=== PATIENT | female | born 1975 | race American Indian/Alaskan Native ===

== ENCOUNTER 2016-07-05 11:09 | Emergency (ER) | payer OTHER ==
[2016-07-05 11:21] VITALS: BP 124/85
--- NOTE | 2016-07-05 11:24 | EDM.PDOC ---
ED HPI LOWER BACK PAIN/INJURY - General Chief Complaint: Back Pain or Injury Stated Complaint: LOWER BACK PAIN [phone] Time Seen by Provider: 07/05/16 11:24 Source of Information: Reports: Patient, RN, RN notes reviewed History Limitations: Reports: No limitations - History of Present Illness INITIAL COMMENTS - FREE TEXT/NARRATIVE: C/O flare up of chronic low back pain x2 weeks without new injury. For the last 5 days the pain has been worse, and is radiating down through the Rt buttock, back of the Rt thigh, then goes around to lateral Rt lower leg, out into the Rt foot to the toes. Pt denies any motor weakness, saddle numbness, or loss of bowel or bladder control. She has an appointment in clinic next week, but cannot get in any sooner. She also ran out of her gabapentin 3 days early. 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 treatments, Other medication(s) - Related Data Allergies/ADRs: Allergies Allergy/AdvReac Type Severity Reaction Status Date / Time No Known Allergies Allergy Verified 07/05/16 11:14 Home Meds: Home Meds Naproxen [Naprosyn] 500 mg PO ASDIRECTED PRN 10/24/14 [History] traZODone HCl [Trazodone HCl] 100 mg PO BEDTIME 10/24/14 [History] Baclofen [Baclofen] 10 mg PO BID 03/25/16 [History] sulfaSALAzine [sulfaSALAzine DR] 1,500 mg PO BID 03/25/16 [History] DULoxetine [Cymbalta] 60 mg PO BID 07/05/16 [History] Past Medical History Other OB/BYN History: LEEP procedure Musculoskeletal History: Reports: Back pain, chronic, RA Other Musculoskeletal History: knee pain Neurological History: Reports: Other (see below) Other Neuro History: fibromyalgia Endocrine/Metabolic History: Reports: Obesity/BMI 30+ Immunologic History: Reports: Other (see below) Other Immunologic History: RA and Fibromyalgia - Infectious Disease History Infectious Disease History: Reports: Chicken pox Social & Family History - Family History Family Medical History: Noncontributory - Tobacco Use Smoking Status *Q: Current Every Day Smoker Years of Tobacco use: 20 Packs/Tins Daily: 0.5 Used Tobacco, but Quit: No Second Hand Smoke Exposure: Yes - Caffeine Use Caffeine Use: Reports: Coffee, Soda - Recreational Drug Use Recreational Drug Use: No - Living Situation & Occupation Living situation: Reports: with family ED ROS GENERAL - Review of Systems Review Of Systems: ROS reveals no pertinent complaints other than HPI. ED EXAM,LOWER BACK PAIN/INJURY - Physical Exam Exam: See Below Exam Limited By: No limitations General Appearance: alert, WD/WN, no apparent distress Head: atraumatic, normocephalic Neck: normal inspection Respiratory/Chest: no respiratory distress Cardiovascular: normal peripheral pulses GI/Abdominal: normal bowel sounds, soft, non tender, no distention, other ( benign morbidly obese abdomen) (Female) Exam: Deferred Rectal (Female) Exam: Deferred Back Exam: decreased range of motion (L-spine), muscle spasm, paraspinal tenderness (lumbar). No: CVA tenderness (L), CVA tenderness (R), vertebral tenderness Extremities: normal inspection, normal range of motion, non-tender, no pedal edema, normal capillary refill Neurological: alert, normal mood/affect, normal dorsiflexion, CN II-XII intact, normal plantar flexion, no motor/sensory deficits. No: normal gait (antalgic gait favoring right lower ext.) Psychiatric: normal affect, normal mood Skin Exam: Warm, Dry, Intact, Normal color, No rash Course - Vital Signs Last Recorded V/S: Last Vital Signs Temp 36.6 C 07/05/16 11:17 Pulse 96 07/05/16 11:17 Resp 20 07/05/16 11:17 BP 124/85 07/05/16 11:17 Pulse Ox 99 07/05/16 11:17 - Orders/Labs/Meds Orders: Active Orders 24 hr Category Date Time Status Lumbar Spine 2 or 3V [CR] Urgent Exams 07/05/16 11:40 Taken Meds: Medications Discontinued Medications Generic Name Dose Route Start Last Admin Trade Name Freq PRN Reason Stop Dose Admin Dexamethasone 12 mg 07/05/16 11:40 07/05/16 11:54 Dexamethasone IM 07/05/16 11:41 12 mg ONETIME ONE Administration Gabapentin 800 mg 07/05/16 11:40 07/05/16 11:54 Neurontin PO 07/05/16 11:41 800 mg ONETIME ONE Administration - Radiology Interpretation Free Text/Narrative:: XRay L-spine: chronic appearing degen. changes of L-spine with L5-S1 DDD; see Rad. report. Departure - Departure Time of Disposition: 12:13 Disposition: Home, Self-Care 01 Condition: fair Clinical Impression: Lumbar radiculopathy, acute, Degenerative disc disease, lumbar Instructions: Chronic Back Pain Forms: ED Department Discharge Additional Instructions: Rx: Medrol Dose-Mohsen Rx: Gabapentin 400mg Rx: [place] 5mg/325mg Follow up in clinic for recheck, and discuss need for a lumbar MRI with your doctor. - My Orders Last 24 Hours: My Active Orders 07/05/16 11:40 Lumbar Spine 2 or 3V [CR] Urgent - Assessment/Plan Last 24 Hours: My Active Orders 07/05/16 11:40 Lumbar Spine 2 or 3V [CR] Urgent
[2016-07-05] MEDS ORDERED: Gabapentin 400 MG Cap PO ONE (11:40)
[2016-07-05] MEDS ORDERED: Dexamethasone 4 MG/ML SDV IM ONE (11:40)
--- NOTE | 2016-07-05 12:30 | CR ---
Clinical history: 41-year-old female low back pain that "radiation" right leg and foot. No known tra mathew. Interpretation: AP lateral lumbar sacral spine films confirm transitional (lumbarized) S1 vertebra a nd signs of chronic lower lumbar L5-S1 disc disease i.e. interspace narrowing with endplate sclerosi s. Reactive sclerosis posterior articulating facets, L5 and S1 levels. No sign of pathologic skeletal lesion, compression fracture, spondylolisthesis or proximal intervert ebral disc space narrowing. Symmetric spacing normal-appearing SI joints. CONCLUSION: Lower lumbar disc disease (suggest MRI be considered as the next best, least invasive, d iagnostic modality).
== END 2016-07-05 12:46 | disposition home or self-care (01) ==
LOC: DL.ED 11:09
DX: M54.16 Radiculopathy, lumbar region (principal); M51.36 Other intervertebral disc degeneration, lumbar region; M06.9 Rheumatoid arthritis, unspecified; E66.9 Obesity, unspecified; F17.210 Nicotine dependence, cigarettes, uncomplicated; Z79.899 Other long term (current) drug therapy
CPT/HCPCS: 72100; 96372; 99283; A9270; J1100

== ENCOUNTER 2016-08-09 13:52 | Emergency (ER) | payer OTHER ==
[2016-08-09 14:06] VITALS: BP 127/79
--- NOTE | 2016-08-09 14:27 | EDM.PDOC ---
[id number]: EXT L BACK PAIN, [id number] Time Seen by Provider: 08/09/16 14:27 Source of Information: Reports: Patient, Old records, RN, RN notes reviewed History Limitations: Reports: No limitations - History of Present Illness INITIAL COMMENTS - FREE TEXT/NARRATIVE: Hx of RA and chronic low back pain, not opiate dependent with c/o acute flare up of LBP radiating to B/L lower extremities. Denies recent injury. Denies loss of bowel or bladder control. Denies saddle numbness, extremity tingling, or weakness. Admits to a "partial" numbness to B/L lower extremities. Has lumbar MRI order pending insurance approval. Timing/Duration: Reports: Constant, Getting worse Location: Reports: radiating pain, generalized Quality: Reports: Same as previous episode, Sharp Severity: severe Improves with: Reports: None Worsens with: Reports: Movement Context: Reports: chronic pain/injury Associated Symptoms: Reports: Difficulty walking (due to back pain) Treatments IRONER SOCK: Reports: Other medication(s) - Related Data Allergies/ADRs: Allergies Allergy/AdvReac Type Severity Reaction Status Date / Time No Known Allergies Allergy Verified 08/09/16 14:06 Home Meds: Home Meds Naproxen [Naprosyn] 500 mg PO ASDIRECTED PRN 10/24/14 [History] traZODone HCl [Trazodone HCl] 100 mg PO BEDTIME 10/24/14 [History] sulfaSALAzine [sulfaSALAzine DR] 1,500 mg PO BID 03/25/16 [History] DULoxetine [Cymbalta] 60 mg PO BID 07/05/16 [History] Gabapentin [Neurontin] 600 mg PO QID 08/09/16 [History] Past Medical History HEENT History: Reports: Impaired vision Other OB/BYN History: LEEP procedure Musculoskeletal History: Reports: Back pain, chronic, RA Other Musculoskeletal History: knee pain Neurological History: Reports: Other (see below) Other Neuro History: fibromyalgia Endocrine/Metabolic History: Reports: Obesity/BMI 30+ Immunologic History: Reports: Other (see below) Other Immunologic History: RA and Fibromyalgia - Infectious Disease History Infectious Disease History: Reports: Chicken pox - Past Surgical History GI Surgical History: Reports: Appendectomy, Bariatric procedure Social & Family History - Family History Family Medical History: Noncontributory - Tobacco Use Smoking Status *Q: Current Every Day Smoker Years of Tobacco use: 20 Packs/Tins Daily: 0.6 Used Tobacco, but Quit: No Second Hand Smoke Exposure: Yes - Caffeine Use Caffeine Use: Reports: Coffee - Recreational Drug Use Recreational Drug Use: No - Living Situation & Occupation Living situation: Reports: with family ED ROS GENERAL - Review of Systems Review Of Systems: ROS reveals no pertinent complaints other than HPI. ED EXAM,LOWER BACK PAIN/INJURY - Physical Exam Exam: See Below Exam Limited By: No limitations General Appearance: alert, WD/WN, no apparent distress Eye Exam: bilateral eye: normal inspection Nose: normal inspection Throat/Mouth: Normal inspection Head: atraumatic, normocephalic Neck: normal inspection, supple, non-tender, full range of motion Respiratory/Chest: no respiratory distress, lungs clear, normal breath sounds, no accessory muscle use, chest non-tender Cardiovascular: normal peripheral pulses, regular rate, rhythm GI/Abdominal: normal bowel sounds, soft, no distention, other (benign obese abdomen) (Female) Exam: Deferred Rectal (Female) Exam: Deferred Back Exam: decreased range of motion (lumbosacral), muscle spasm (lumbar), paraspinal tenderness (lumbar). No: CVA tenderness (L), CVA tenderness (R), vertebral tenderness Extremities: normal inspection, normal range of motion, non-tender, no pedal edema, normal capillary refill Neurological: alert, normal mood/affect, normal dorsiflexion, CN II-XII intact, normal plantar flexion, normal reflexes, no motor/sensory deficits, oriented x 3 , abnormal gait (antalgic gait) Psychiatric: normal affect, normal mood Skin Exam: Warm, Dry, Intact, Normal color, No rash Course - Vital Signs Last Recorded V/S: Last Vital Signs Temp 35.9 C 08/09/16 14:03 Pulse 90 08/09/16 14:03 Resp 16 08/09/16 14:03 BP 127/79 08/09/16 14:03 Pulse Ox 97 08/09/16 14:03 - Orders/Labs/Meds Meds: Medications Discontinued Medications Generic Name Dose Route Start Last Admin Trade Name Freq PRN Reason Stop Dose Admin Dexamethasone 12 mg 08/09/16 14:42 08/09/16 14:50 Dexamethasone IM 04/12/17 14:43 12 mg ONETIME ONE Administration Gabapentin 300 mg 08/09/16 14:43 08/09/16 14:56 Neurontin PO 08/09/16 14:44 300 mg ONETIME ONE Administration Hydromorphone HCl 1 mg 08/09/16 14:43 08/09/16 14:49 Dilaudid IM 08/09/16 14:44 1 mg ONETIME ONE Administration Departure - Departure Time of Disposition: 14:58 Disposition: Home, Self-Care 01 Condition: fair Clinical Impression: Lumbar radiculopathy, acute Instructions: Pain Medicine Instructions, [id number], Lumbosacral Radiculopathy Forms: ED Department Discharge Additional Instructions: Light activity as tolerated. Avoid stay in any position for prolonged periods of time. Rx: Percocet 10mg/325mg *Do not drive or work while under the influence of this medication. Rx: Decadron 4mg Follow up in clinic as planned. Return to ER if worse at any time.
[2016-08-09] MEDS ORDERED: Dexamethasone 4 MG/ML SDV IM ONE (14:42)
[2016-08-09] MEDS ORDERED: HYDROmorphone 1 MG/ML Syringe IM ONE (14:43)
[2016-08-09] MEDS ORDERED: Gabapentin 300 MG Cap PO ONE (14:43)
== END 2016-08-09 15:03 | disposition home or self-care (01) ==
LOC: DL.ED 13:52
DX: M54.16 Radiculopathy, lumbar region (principal); E66.9 Obesity, unspecified; M06.9 Rheumatoid arthritis, unspecified; F17.210 Nicotine dependence, cigarettes, uncomplicated; Z68.42 Body mass index [BMI] 45.0-49.9, adult; Z90.49 Acquired absence of other specified parts of digestive tract; Z98.84 Bariatric surgery status; Z79.899 Other long term (current) drug therapy
CPT/HCPCS: 96372; 99283; A9270; J1100; J1170

== ENCOUNTER 2016-08-23 23:56 | Emergency (ER) | payer OTHER ==
[2016-08-24 00:23] VITALS: BP 127/78
--- NOTE | 2016-08-24 01:07 | EDM.PDOC ---
[id number]: BACK PAIN Time Seen by Provider: 08/24/16 00:15 Source of Information: Reports: Patient History Limitations: Reports: No limitations - History of Present Illness INITIAL COMMENTS - FREE TEXT/NARRATIVE: c/o low back pain with radiation to right lower leg. Onset sudden 2 months ago. Right leg pain worse tonight. Has appointment for MRI and with [facility] this week. Location: Reports: lower, paraspinal, radiating pain (right outer thigh) Quality: Reports: Sharp Severity: moderate Worsens with: Reports: Movement Context: Reports: chronic pain/injury Associated Symptoms: Denies: Nausea/vomiting, Paresthesias, Problems urinating - Related Data Allergies/ADRs: Allergies Allergy/AdvReac Type Severity Reaction Status Date / Time No Known Allergies Allergy Verified 08/24/16 00:23 Home Meds: Home Meds Naproxen [Naprosyn] 500 mg PO ASDIRECTED PRN 10/24/14 [History] traZODone HCl [Trazodone HCl] 100 mg PO BEDTIME 10/24/14 [History] sulfaSALAzine [sulfaSALAzine DR] 1,500 mg PO BID 03/25/16 [History] DULoxetine [Cymbalta] 60 mg PO BID 07/05/16 [History] Gabapentin [Neurontin] 600 mg PO QID 08/09/16 [History] Baclofen 10 mg PO BID 08/24/16 [History] Past Medical History HEENT History: Reports: Impaired vision Other OB/BYN History: LEEP procedure Musculoskeletal History: Reports: Back pain, chronic, RA Other Musculoskeletal History: knee pain Neurological History: Reports: Other (see below) Other Neuro History: fibromyalgia Endocrine/Metabolic History: Reports: Obesity/BMI 30+ Immunologic History: Reports: Other (see below) Other Immunologic History: RA and Fibromyalgia - Infectious Disease History Infectious Disease History: Reports: Chicken pox - Past Surgical History GI Surgical History: Reports: Appendectomy, Bariatric procedure Social & Family History - Family History Family Medical History: Noncontributory - Tobacco Use Smoking Status *Q: Current Every Day Smoker Years of Tobacco use: 20 Packs/Tins Daily: 6 Used Tobacco, but Quit: No Second Hand Smoke Exposure: Yes - Caffeine Use Caffeine Use: Reports: Coffee, Soda - Recreational Drug Use Recreational Drug Use: No - Living Situation & Occupation Living situation: Reports: with family ED ROS GENERAL - Review of Systems Review Of Systems: See Below Constitutional: Reports: no symptoms HEENT: Reports: No symptoms Respiratory: Reports: No Symptoms Cardiovascular: Reports: No symptoms GI/Abdominal: Reports: No symptoms : Reports: no symptoms Musculoskeletal: Reports: back pain, leg pain (right) Skin: Reports: no symptoms Neurological: Denies: Weakness ED EXAM,LOWER BACK PAIN/INJURY - Physical Exam Exam: See Below Exam Limited By: No limitations General Appearance: alert, moderate distress Ears: normal external exam Nose: normal inspection Throat/Mouth: Normal inspection Head: atraumatic, normocephalic Neck: normal inspection Cardiovascular: normal peripheral pulses, regular rate, rhythm GI/Abdominal: normal bowel sounds, soft. No: distended Back Exam: paraspinal tenderness (right lumbar). No: vertebral tenderness Extremities: normal range of motion Neurological: alert, normal dorsiflexion, oriented x 3, abnormal gait (antalgic) , straight leg raise (R) (increased pain), other (equal strength bilateral). No : abnormal sensation Psychiatric: normal affect Skin Exam: Warm, Dry, Intact, Normal color Course - Vital Signs Last Recorded V/S: Last Vital Signs Temp 96.8 F 08/24/16 00:13 Pulse 99 08/24/16 00:13 Resp 18 08/24/16 00:13 BP 127/78 08/24/16 00:13 Pulse Ox 98 08/24/16 00:13 - Orders/Labs/Meds Labs: Laboratory Tests 08/24/16 08/24/16 08/24/16 Range/Units 01:17 01:17 01:17 WBC 8.8 (5.0-10.0) 10^3/uL RBC 4.45 (4.2-5.4) 10^6/uL Hgb 12.6 (12.0-16.0) g/dL Hct 38.4 (37.0-47.0) % MCV 86.3 (80-100) fL MCH 28.3 (27.0-34.0) pg MCHC 32.8 L (33.0-35.0) g/dL Plt Count 304 (150-450) 10^3/uL Neut % (Auto) 62.7 (42.2-75.2) % Lymph % (Auto) 22.6 (20.5-50.1) % [place] % (Auto) 11.5 H (2-8) % Eos % (Auto) 3.0 (1.0-3.0) % Baso % (Auto) 0.2 (0.0-1.0) % Sodium 137 (135-145) mmol/L Potassium 3.7 (3.6-5.0) mmol/L Chloride 107 (101-111) mmol/L Carbon Dioxide 23.0 (21.0-31.0) mmol/L Anion Gap 10.7 BUN 14 (7-18) mg/dL Creatinine 0.9 (0.6-1.3) mg/dL Est Cr Clr Drug Dosing 74.77 mL/min Estimated GFR (MDRD) > 60 BUN/Creatinine Ratio 15.55 Glucose 122 H (74-105) mg/dL Calcium 8.6 (8.4-10.2) mg/dl Total Bilirubin 0.7 (0.2-1.0) mg/dL AST 20 (10-42) IU/L ALT 19 (10-60) IU/L Alkaline Phosphatase 94 (42-121) IU/L C-Reactive Protein < 0.5 (0.0-1.3) mg/dL Total Protein 7.0 (6.7-8.2) g/dl Albumin 3.9 (3.2-5.5) g/dl Globulin 3.1 Albumin/Globulin Ratio 1.26 Meds: Medications Discontinued Medications Generic Name Dose Route Start Last Admin Trade Name Vaughnq PRN Reason Stop Dose Admin Diazepam 5 mg 08/24/16 01:17 08/24/16 01:32 Valium. PO 08/24/16 01:18 5 mg ONETIME ONE Administration Oxycodone/Acetaminophen 1 tab 08/24/16 01:19 08/24/16 01:30 Percocet 325-5 Mg PO 08/24/16 01:20 1 tab ONETIME ONE Administration Oxycodone/Acetaminophen Confirm 08/24/16 02:18 08/24/16 03:17 Percocet 325-5 Mg Administered 08/24/16 02:19 Not Given Dose 2 tab .ROUTE .STK-MED ONE Oxycodone/Acetaminophen 2 tab 08/24/16 02:18 Percocet 325-5 Mg PO 08/24/16 02:19 .STK-MED ONE Prednisone 40 mg 08/24/16 01:22 08/24/16 01:32 Prednisone PO 08/24/16 01:23 40 mg ONETIME ONE Administration Departure - Departure Time of Disposition: 02:15 Disposition: Home, Self-Care 01 Condition: good Clinical Impression: Back pain with sciatica Rheumatoid arthritis Qualifiers: Rheumatoid arthritis location: unspecified site Rheumatoid factor presence: unspecified presence Qualified Code(s): M06.9 - Rheumatoid arthritis, unspecified Obesity Qualifiers: Obesity type: unspecified obesity type Obesity severity: morbid Qualified Code( s): E66.01 - Morbid (severe) obesity due to excess calories Forms: ED Department Discharge Additional Instructions: increase Baclofen to 10mg three times daily for 5 days percocet 5/325 one every 6 hours prn #12 Prednisone 40mg in am then 20mg daily x 5 days rest alternate heat and cold to low back Follow up with primary care tomorrow Director Of Rehabilitation And Wellness as scheduled on Sunday Mri on Sunday as previously scheduled
[2016-08-24] MEDS ORDERED: Diazepam 5 MG Tab PO ONE (01:17)
[2016-08-24] MEDS ORDERED: Acetaminophen/oxyCODONE 325-5 MG Tab PO ONE ×2 (01:19→02:18)
[2016-08-24] MEDS ORDERED: predniSONE 20 MG Tab PO ONE (01:22)
[2016-08-24 01:40] LABS: CHLORIDE,CL 107 mmol/L (101-111); SODIUM,NA 137 mmol/L (135-145)
[2016-08-24] MEDS ORDERED: Acetaminophen/oxyCODONE 325-5 MG Tab ONE (02:18)
== END 2016-08-24 02:23 | disposition home or self-care (01) ==
LOC: DL.ED 23:56
DX: M54.41 Lumbago with sciatica, right side (principal); M06.9 Rheumatoid arthritis, unspecified; E66.01 Morbid (severe) obesity due to excess calories; F17.210 Nicotine dependence, cigarettes, uncomplicated; Z79.899 Other long term (current) drug therapy; Z90.49 Acquired absence of other specified parts of digestive tract; Z98.84 Bariatric surgery status
CPT/HCPCS: 36415; 80053; 85025; 86140; 99283; A9270

== ENCOUNTER 2016-08-31 18:11 | Emergency (ER) | payer OTHER ==
[2016-08-31 18:27] VITALS: BP 138/83
--- NOTE | 2016-08-31 18:57 | EDM.PDOC ---
Scribed by Catherine Toledo 08/31/16 [id number] for Dillon Wang MD <Dillon Wang - Last Filed: 08/31/16 18:57> ED HPI LOWER BACK PAIN/INJURY - General Chief Complaint: Back Pain or Injury Stated Complaint: BACK SPASM,CHRONIC BAD ISSUES Time Seen by Provider: 08/31/16 18:20 Source of Information: Reports: Patient, RN, RN notes reviewed History Limitations: Reports: No limitations - History of Present Illness INITIAL COMMENTS - FREE TEXT/NARRATIVE: History of RA and chronic low back pain, not opiate dependent with c/o acute flare up of LBP radiatubg to B/L lower extremities. Denies recent injury. Denies loss of bowel or bladder control. Denies saddle numbness, extremity tingling, or weakness. Admits to a "partial" numbness to bilateral lower extremities. Had MRI showing multilevel lumbar disc degeneration and signs of disc herniation L4-5 level on 08/28/2016. Severity: severe Improves with: Reports: None Worsens with: Reports: None Associated Symptoms: Reports: Denies symptoms - Related Data Allergies/ADRs: Allergies Allergy/AdvReac Type Severity Reaction Status Date / Time No Known Allergies Allergy Verified 08/24/16 00:23 Home Meds: Home Meds traZODone HCl [Trazodone HCl] 100 mg PO BEDTIME 10/24/14 [History] sulfaSALAzine [sulfaSALAzine DR] 1,500 mg PO BID 03/25/16 [History] DULoxetine [Cymbalta] 60 mg PO BID 07/05/16 [History] Gabapentin [Neurontin] 600 mg PO QID 08/09/16 [History] Baclofen 10 mg PO TID 08/24/16 [History] Ascorbic Acid [Vitamin C] PO DAILY 08/31/16 [History] Cholecalciferol (Vitamin D3) [Vitamin D] PO DAILY 08/31/16 [History] Folic Acid PO DAILY 08/31/16 [History] Multivitamin [Multivitamins] 1 each PO DAILY 08/31/16 [History] Naproxen Sodium [Aleve] 220 mg PO 08/31/16 [History] Past Medical History HEENT History: Reports: Impaired vision Other OB/BYN History: LEEP procedure Musculoskeletal History: Reports: Back pain, chronic, RA Other Musculoskeletal History: knee pain Neurological History: Reports: Other (see below) Other Neuro History: fibromyalgia Endocrine/Metabolic History: Reports: Obesity/BMI 30+ Immunologic History: Reports: Other (see below) Other Immunologic History: RA and Fibromyalgia - Infectious Disease History Infectious Disease History: Reports: Chicken pox - Past Surgical History GI Surgical History: Reports: Appendectomy, Bariatric procedure Social & Family History - Family History Family Medical History: Noncontributory - Tobacco Use Smoking Status *Q: Current Every Day Smoker Years of Tobacco use: 20 Packs/Tins Daily: 6 Used Tobacco, but Quit: No Second Hand Smoke Exposure: Yes - Caffeine Use Caffeine Use: Reports: Coffee, Soda - Recreational Drug Use Recreational Drug Use: No - Living Situation & Occupation Living situation: Reports: with family ED ROS GENERAL - Review of Systems Review Of Systems: ROS reveals no pertinent complaints other than HPI. Course - Vital Signs Last Recorded V/S: Last Vital Signs Temp 96 F 08/31/16 18:23 Pulse 106 H 08/31/16 18:23 Resp 16 08/31/16 18:23 BP 138/83 08/31/16 18:23 Pulse Ox 97 08/31/16 18:23 - Orders/Labs/Meds Meds: Medications Discontinued Medications Generic Name Dose Route Start Last Admin Trade Name Bryce PRN Reason Stop Dose Admin Hydrocodone Bitart/Acetaminophen Confirm 08/31/16 20:15 08/31/16 20:20 [place] 325-10 Mg Administered 08/31/16 20:16 3 tab Dose Administration 3 tab .ROUTE .STK-MED ONE - Radiology Interpretation Free Text/Narrative:: MRI report reviewed. Departure - Departure Disposition: Home, Self-Care 01 Clinical Impression: Sciatica, Lumbar herniated disc, Back pain with sciatica Instructions: Back Pain, Adult, [id number] Forms: ED Department Discharge Additional Instructions: hydrocodone [id number] one every 6 hours as needed for severe pain baclofen 10mg continue 3times daily increase gabapentin 600mg 3 times daily and 900mg at bed time follow up with primary care. <Olga Schafer - Last Filed: 09/01/16 03:33> ED HPI LOWER BACK PAIN/INJURY - History of Present Illness INITIAL COMMENTS - FREE TEXT/NARRATIVE: Reports primary difficulty recently is inability to sleep and find comfortable position. Attempted to be seen at [facility] and was told they do not treat chronic pain and needed to go to ER. Follow up appointment for MRI resuts and hopefully set up referral not until mid September. Brief relief of throbbing with increase in Baclofen. Location: Reports: lower Quality: Reports: Throbbing ED EXAM,LOWER BACK PAIN/INJURY - Physical Exam Exam: See Below Exam Limited By: No limitations General Appearance: alert, mild distress, obese Ears: normal external exam Nose: normal inspection Throat/Mouth: Normal inspection Head: atraumatic, normocephalic Cardiovascular: normal peripheral pulses GI/Abdominal: normal bowel sounds, soft, non tender Back Exam: paraspinal tenderness (greater on right ). No: decreased range of motion Extremities: normal range of motion. No: limited range of motion Neurological: alert, normal mood/affect, normal dorsiflexion, normal plantar flexion, normal gait, normal reflexes, no motor/sensory deficits, oriented x 3, straight leg raise (R) (mild increase in pain) Skin Exam: Warm, Dry, Intact, Normal color Course - Orders/Labs/Meds Meds: Medications Discontinued Medications Generic Name Dose Route Start Last Admin Trade Name Bryce PRN Reason Stop Dose Admin Hydrocodone Bitart/Acetaminophen Confirm 08/31/16 20:15 08/31/16 20:20 [place] 325-10 Mg Administered 08/31/16 20:16 3 tab Dose Administration 3 tab .ROUTE .STK-MED ONE Departure - Departure Time of Disposition: 19:59 Condition: good I have read and agree with the documentation that has been completed regarding this visit. By signing this record, I attest that the documentation was completed in my physical presence and is an accurate record of the encounter.
[2016-08-31] MEDS ORDERED: Acetaminophen/HYDROcodone 325-10 MG Tab ONE (20:15)
== END 2016-08-31 20:25 | disposition home or self-care (01) ==
LOC: DL.ED 18:11
DX: M51.17 Intervertebral disc disorders with radiculopathy, lumbosacral region (principal); M06.9 Rheumatoid arthritis, unspecified; M51.26 Other intervertebral disc displacement, lumbar region; E66.9 Obesity, unspecified; F17.210 Nicotine dependence, cigarettes, uncomplicated; Z90.49 Acquired absence of other specified parts of digestive tract; Z79.899 Other long term (current) drug therapy
CPT/HCPCS: 99283; A9270

== ENCOUNTER 2016-10-06 16:16 | Emergency (ER) | payer OTHER ==
--- NOTE | 2016-10-06 16:24 | EDM.PDOC ---
<Dillon Wang - Last Filed: 10/06/16 18:28> ED HPI GENERAL MEDICAL PROBLEM - General Chief Complaint: Back Pain or Injury Stated Complaint: HERNIATED DISC, [id number] Time Seen by Provider: 10/06/16 20:15 Source of Information: Reports: Patient, RN, RN Notes Reviewed History Limitations: Reports: No Limitations - Related Data Allergies Allergy/AdvReac Type Severity Reaction Status Date / Time No Known Allergies Allergy Verified 10/06/16 18:41 Home Meds: Home Meds traZODone HCl [Trazodone HCl] 100 mg PO BEDTIME 10/24/14 [History] sulfaSALAzine [sulfaSALAzine DR] 1,500 mg PO BID 03/25/16 [History] DULoxetine [Cymbalta] 60 mg PO BID 07/05/16 [History] Gabapentin [Neurontin] 600 mg PO QID 08/09/16 [History] Baclofen 10 mg PO TID 08/24/16 [History] Ascorbic Acid [Vitamin C] 100 g PO DAILY 08/31/16 [History] Cholecalciferol (Vitamin D3) [Vitamin D] 5,000 unit PO DAILY 08/31/16 [History] Folic Acid 1 mg PO DAILY 08/31/16 [History] Multivitamin [Multivitamins] 1 each PO DAILY 08/31/16 [History] Naproxen Sodium [Aleve] 220 mg PO 6XDAY 08/31/16 [History] Past Medical History HEENT History: Reports: Impaired Vision 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 (See Below) Other OB/BYN History: LEEP procedure Musculoskeletal History: Reports: Back Pain, Chronic, RA Other Musculoskeletal History: knee pain Neurological History: Reports: Other (See Below) Other Neuro History: fibromyalgia Endocrine/Metabolic History: Reports: Obesity/BMI 30+ Immunologic History: Reports: Other (See Below) Other Immunologic History: RA and Fibromyalgia - Infectious Disease History Infectious Disease History: Reports: Chicken Pox - Past Surgical History GI Surgical History: Reports: Appendectomy, Bariatric Procedure Social & Family History - Family History Family Medical History: Noncontributory - Tobacco Use Smoking Status *Q: Current Every Day Smoker Years of Tobacco use: 20 Packs/Tins Daily: 6 Used Tobacco, but Quit: No Second Hand Smoke Exposure: Yes - Caffeine Use Caffeine Use: Reports: Coffee, Soda - Recreational Drug Use Recreational Drug Use: No - Living Situation & Occupation Living situation: Reports: with Family Course - Vital Signs Last Recorded V/S: Last Vital Signs Temp 36.4 C 10/06/16 18:31 Pulse 94 10/06/16 18:31 Resp 18 10/06/16 18:31 BP 124/105 H 10/06/16 18:31 Pulse Ox 98 10/06/16 18:31 - Orders/Labs/Meds Meds: Medications Discontinued Medications Generic Name Dose Route Start Last Admin Trade Name Bryce PRN Reason Stop Dose Admin Hydrocodone Bitart/Acetaminophen 1 tab 10/06/16 20:25 [place] 325-10 Mg PO 10/06/16 20:26 ONETIME ONE Departure - Departure Disposition: Home, Self-Care 01 Clinical Impression: Back pain with sciatica - Discharge Information Instructions: Back Pain, Adult, [id number], Chronic Back Pain, Pain Medicine Instructions, [id number] Forms: ED Department Discharge Care Plan Goals: The patient was advised of the examination results during the visit. The patient was given [place] (10/325) #2 to take 1 by mouth every 6 hours and a script for [place] (10/325) #12 to take 1 by mouth every 6 hours as needed for pain. The patient was advised to follow-up with her primary care facility for continued management of chronic back pain. If the patient has any additional symptoms or concerns, the patient should visit her primary care facility or return to the emergency department. <Jacoby Rowe - Last Filed: 10/06/16 20:39> ED HPI GENERAL MEDICAL PROBLEM - History of Present Illness INITIAL COMMENTS - FREE TEXT/NARRATIVE: This 41 yo female patient reports to the ED with continue back pain with sciatica to her right leg. The patient reports she has been seen by neurology and has a follow-up visit with neurosurgery for a herniated disk. The patient has not been given any pain medications by her primary care provider. The patient has been taking Aleve (up to 4 pills 2 times per day for temporary pain management), but continues to be in increased pain. The patient reports she has been out to the [facility], but she has been sent to the ED for management of her chronic pain. 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 ED EXAM, UPPER BACK/NECK PAIN - Physical Exam Exam: See Below Exam Limited By: No Limitations General Appearance: Alert, WD/WN, Moderate Distress, Obese Eye Exam: Bilateral Eye: EOMI, Normal Inspection, PERRL Ears Exam: Normal External Exam, Normal Canal, Hearing Grossly Normal, Normal TMs Nose Exam: Normal Inspection, Normal Mucousa, No Blood Throat/Mouth Exam: Normal Inspection, Normal Lips, Normal Teeth, Normal Gums, Normal Oropharynx, Normal Voice, No Airway Compromise Head Exam: Atraumatic, Normocephalic Neck Exam: Non-Tender, Full Range of Motion, Normal Alignment, Normal Inspection Cardiovascular/Respiratory: Regular Rate, Rhythm, No M/R/G, Normal Peripheral Pulses, No JVD, Normal Breath Sounds, No Respiratory Distress GI/Abdominal: Normal Bowel Sounds, Soft, Non-Tender, No Organomegaly, No Distention, No Abnormal Bruit, No Mass, Other (morbid obesity) (Female) Exam: Deferred Rectal (Female) Exam: Deferred Back Exam: Normal Inspection, Full Range of Motion, NT Extremities: Normal Inspection, Normal Range of Motion, Non-Tender, No Pedal Edema, Normal Capillary Refill Neurologic: publication distributor II-XII nml As Tested, No Motor/Sensory Deficits, Alert, Normal Mood/Affect, Oriented x 3 Psychiatric: Normal Affect, Normal Mood Skin Exam: Normal Color, Warm/Dry Lymphatic: No Adenopathy Departure - Departure Time of Disposition: 20:30 Condition: fair
[2016-10-06 18:41] VITALS: BP 124/105
[2016-10-06] MEDS ORDERED: Acetaminophen/HYDROcodone 325-10 MG Tab PO ONE ×2 (20:25→20:32)
[2016-10-06] MEDS ORDERED: Acetaminophen/HYDROcodone 325-10 MG Tab ONE (20:32)
== END 2016-10-06 20:35 | disposition home or self-care (01) ==
LOC: DL.ED 16:16
DX: M54.41 Lumbago with sciatica, right side (principal); Z79.899 Other long term (current) drug therapy; E66.9 Obesity, unspecified; F17.210 Nicotine dependence, cigarettes, uncomplicated; M06.9 Rheumatoid arthritis, unspecified; Z90.49 Acquired absence of other specified parts of digestive tract; Z98.84 Bariatric surgery status
CPT/HCPCS: 99283; A9270

== ENCOUNTER 2016-10-30 09:11 | Emergency (ER) | payer OTHER ==
[2016-10-30 09:22] VITALS: BP 128/73
--- NOTE | 2016-10-30 09:26 | EDM.PDOC ---
ED HPI GENERAL MEDICAL PROBLEM - General Chief Complaint: Upper Extremity Injury/Pain Stated Complaint: [id number] ARM PAIN Time Seen by Provider: 10/30/16 09:25 Source of Information: Reports: Patient, Old Records, RN, RN Notes Reviewed History Limitations: Reports: No Limitations - History of Present Illness INITIAL COMMENTS - FREE TEXT/NARRATIVE: C/O left shoulder pain on/off x2 months. In the last several days the pain has increased, and the shoulder feels hot to her. Denies fever or chills. Denies injury or radiating pain. Hx of RA and bursitis. 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: Other Medication(s) Left Arm Pain Score (Numeric/FACES): 7 - Related Data Allergies Allergy/AdvReac Type Severity Reaction Status Date / Time No Known Allergies Allergy Verified 10/30/16 09:27 Home Meds: Home Meds traZODone HCl [Trazodone HCl] 100 mg PO BEDTIME 10/24/14 [History] sulfaSALAzine [sulfaSALAzine DR] 1,500 mg PO BID 03/25/16 [History] DULoxetine [Cymbalta] 60 mg PO BID 07/05/16 [History] Gabapentin [Neurontin] 600 mg PO QID 08/09/16 [History] Baclofen 10 mg PO TID 08/24/16 [History] Ascorbic Acid [Vitamin C] 100 g PO DAILY 08/31/16 [History] Cholecalciferol (Vitamin D3) [Vitamin D] 5,000 unit PO DAILY 08/31/16 [History] Folic Acid 1 mg PO DAILY 08/31/16 [History] Multivitamin [Multivitamins] 1 each PO DAILY 08/31/16 [History] Naproxen Sodium [Aleve] 220 mg PO 6XDAY 08/31/16 [History] Methocarbamol 750 mg PO BID 10/30/16 [History] Past Medical History HEENT History: Reports: Impaired Vision 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 (See Below) Other OB/BYN History: LEEP procedure Musculoskeletal History: Reports: Back Pain, Chronic, RA Other Musculoskeletal History: knee pain Neurological History: Reports: Other (See Below) Other Neuro History: fibromyalgia Endocrine/Metabolic History: Reports: Obesity/BMI 30+ Immunologic History: Reports: Other (See Below) Other Immunologic History: RA and Fibromyalgia - Infectious Disease History Infectious Disease History: Reports: Chicken Pox - Past Surgical History GI Surgical History: Reports: Appendectomy, Bariatric Procedure Social & Family History - Family History Family Medical History: Noncontributory - Tobacco Use Smoking Status *Q: Current Every Day Smoker Years of Tobacco use: 20 Packs/Tins Daily: 5 Used Tobacco, but Quit: No Second Hand Smoke Exposure: Yes - Caffeine Use Caffeine Use: Reports: Coffee, Soda - Recreational Drug Use Recreational Drug Use: No - Living Situation & Occupation Living situation: Reports: with Family Review of Systems - Review of Systems Review Of Systems: ROS reveals no pertinent complaints other than HPI. ED EXAM, GENERAL - Physical Exam Exam: See Below Exam Limited By: No Limitations General Appearance: Alert, WD/WN, No Apparent Distress, Obese Throat/Mouth: Normal Inspection Head: Atraumatic, Normocephalic Neck: Normal Inspection, Supple, Non-Tender, Full Range of Motion. No: Lymphadenopathy (L), Lymphadenopathy (R) Respiratory/Chest: No Respiratory Distress, Normal Breath Sounds Cardiovascular: Normal Peripheral Pulses Back Exam: Decreased Range of Motion (chronic/stable). No: Vertebral Tenderness Extremities: Normal Capillary Refill, Limited Range of Motion (left shoulder), Increased Warmth (left shoulder). No: Joint Swelling, Redness Neurological: Alert, Oriented, No Motor/Sensory Deficits Psychiatric: Normal Mood Skin Exam: Warm, Dry, Intact, Normal Color, No Rash Course - Vital Signs Last Recorded V/S: Last Vital Signs Temp 36.6 C 10/30/16 09:20 Pulse 84 10/30/16 09:20 Resp 16 10/30/16 09:20 BP 128/73 10/30/16 09:20 Pulse Ox 98 10/30/16 09:20 - Orders/Labs/Meds Orders: Active Orders 24 hr Category Date Time Status CRP [C-REACTIVE PROTEIN] [CHEM] Stat Lab 10/30/16 09:40 Received Ketorolac [Toradol] Med 10/30/16 10:01 Once 60 mg IM ONETIME ONE Labs: Laboratory Tests 10/30/16 Range/Units 09:40 WBC 7.4 (5.0-10.0) 10^3/uL RBC 4.43 (4.2-5.4) 10^6/uL Hgb 12.2 (12.0-16.0) g/dL Hct 38.4 (37.0-47.0) % MCV 86.7 (80-100) fL MCH 27.5 (27.0-34.0) pg MCHC 31.8 L (33.0-35.0) g/dL Plt Count 389 (150-450) 10^3/uL Neut % (Auto) 49.5 (42.2-75.2) % Lymph % (Auto) 35.4 (20.5-50.1) % [place] % (Auto) 12.3 H (2-8) % Eos % (Auto) 2.4 (1.0-3.0) % Baso % (Auto) 0.4 (0.0-1.0) % - Radiology Interpretation Free Text/Narrative:: Xray left shoulder: normal per Rad. report. Departure - Departure Time of Disposition: 10:13 Disposition: Home, Self-Care 01 Condition: Good Clinical Impression: Bursitis of shoulder, left - Discharge Information Instructions: Bursitis, [id number]-Gcvy Forms: ED Department Discharge Additional Instructions: Rest, ice packs to left shoulder. Rx: [place] 5mg/325mg Follow up with rheumatolgist as planned. - My Orders Last 24 Hours: My Active Orders 10/30/16 09:40 CRP [C-REACTIVE PROTEIN] [CHEM] Stat 10/30/16 10:01 Ketorolac [Toradol] 60 mg IM ONETIME ONE - Assessment/Plan Last 24 Hours: My Active Orders 10/30/16 09:40 CRP [C-REACTIVE PROTEIN] [CHEM] Stat 10/30/16 10:01 Ketorolac [Toradol] 60 mg IM ONETIME ONE
--- NOTE | 2016-10-30 09:58 | CR ---
Clinical history: 41-year-old female left shoulder pain (no injury). Interpretation: Negative exam. Homogeneous normal bone density. No sign of pathologic skeletal lesion, left shoulder fracture, acro mioclavicular separation or glenohumeral dislocation. Left lung apex clear. No juxta-articular calci fications in the course of the rotator cuff tendon. No foreign bodies.
[2016-10-30] MEDS ORDERED: Ketorolac 30 MG/ML SDV IM ONE (10:01)
== END 2016-10-30 10:23 | disposition home or self-care (01) ==
LOC: DL.ED 09:11
DX: M75.52 Bursitis of left shoulder (principal); H54.7 Unspecified visual loss; M06.9 Rheumatoid arthritis, unspecified; E66.9 Obesity, unspecified; F17.210 Nicotine dependence, cigarettes, uncomplicated; Z79.899 Other long term (current) drug therapy
CPT/HCPCS: 36415; 73030; 85025; 86140; 96372; 99283; J1885

== ENCOUNTER 2016-12-21 18:02 | Emergency (ER) | payer OTHER ==
[2016-12-21 18:22] VITALS: BP 135/82
[2016-12-21] MEDS ORDERED: methylPREDNISolone Sodium Succinate 125 MG/2 ML SDV IM ONE (18:25)
--- NOTE | 2016-12-21 18:32 | EDM.PDOC ---
ED HPI GENERAL MEDICAL PROBLEM - General Chief Complaint: General Stated Complaint: HERNIATED DISC AND ARTHRITIS, [id number] Time Seen by Provider: 12/21/16 18:15 Source of Information: Reports: Patient History Limitations: Reports: No Limitations - History of Present Illness INITIAL COMMENTS - FREE TEXT/NARRATIVE: This 41 yo female patient reports to the ED with increased diffuse joint pain. The patient reports she has been seeing Dr. Yi at [facility]. The patient reports she has an appointment with a Property Maintenance Technician in January and a follow-up appointment with Dr. Yi in December. The patient reports she has had increased pain in all of her joints as well as in her lower back pain. Onset Date: 12/17/16 Duration: Constant, Getting Worse Location: Reports: Back, Generalized Quality: Reports: Ache, Dull Severity: Severe Improves with: Reports: None Worsens with: Reports: None Associated Symptoms: Reports: No Other Symptoms Generalized Pain Score (Numeric/FACES): 7 - Related Data Allergies Allergy/AdvReac Type Severity Reaction Status Date / Time No Known Allergies Allergy Verified 10/30/16 09:27 Home Meds: Home Meds traZODone HCl [Trazodone HCl] 100 mg PO BEDTIME 10/24/14 [History] sulfaSALAzine [sulfaSALAzine DR] 1,500 mg PO BID 03/25/16 [History] DULoxetine [Cymbalta] 60 mg PO BID 07/05/16 [History] Gabapentin [Neurontin] 600 mg PO QID 08/09/16 [History] Ascorbic Acid [Vitamin C] 100 g PO DAILY 08/31/16 [History] Cholecalciferol (Vitamin D3) [Vitamin D] 5,000 unit PO DAILY 08/31/16 [History] Naproxen Sodium [Aleve] 220 mg PO 6XDAY PRN 08/31/16 [History] Methocarbamol 1,000 mg PO BID 10/30/16 [History] Past Medical History HEENT History: Reports: Impaired Vision 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 (See Below) Other OB/BYN History: LEEP procedure Musculoskeletal History: Reports: Back Pain, Chronic, RA Other Musculoskeletal History: knee pain Neurological History: Reports: Other (See Below) Other Neuro History: fibromyalgia Endocrine/Metabolic History: Reports: Obesity/BMI 30+ Immunologic History: Reports: Other (See Below) Other Immunologic History: RA and Fibromyalgia - Infectious Disease History Infectious Disease History: Reports: Chicken Pox - Past Surgical History GI Surgical History: Reports: Appendectomy, Bariatric Procedure Social & Family History - Family History Family Medical History: Noncontributory - Tobacco Use Smoking Status *Q: Current Every Day Smoker Years of Tobacco use: 20 Packs/Tins Daily: 5 Used Tobacco, but Quit: No Second Hand Smoke Exposure: Yes - Caffeine Use Caffeine Use: Reports: Coffee, Soda - Recreational Drug Use Recreational Drug Use: No - Living Situation & Occupation Living situation: Reports: with Family ED ROS GENERAL - Review of Systems Review Of Systems: ROS reveals no pertinent complaints other than HPI. ED EXAM, GENERAL - Physical Exam Exam: See Below Exam Limited By: No Limitations General Appearance: Alert, WD/WN, Moderate Distress, Obese Eye Exam: Bilateral Eye: EOMI, Normal Inspection, PERRL Ears: Normal External Exam, Normal Canal, Hearing Grossly Normal, Normal TMs Nose: Normal Inspection, Normal Mucosa, No Blood Throat/Mouth: Normal Inspection, Normal Lips, Normal Teeth, Normal Gums, Normal Oropharynx, Normal Voice, No Airway Compromise Head: Atraumatic, Normocephalic Neck: Normal Inspection, Supple, Non-Tender, Full Range of Motion Respiratory/Chest: No Respiratory Distress, Lungs Clear, Normal Breath Sounds, No Accessory Muscle Use, Chest Non-Tender Cardiovascular: Normal Peripheral Pulses, Regular Rate, Rhythm, No Edema, No Gallop, No JVD, No Murmur, No Rub GI/Abdominal: Normal Bowel Sounds, Soft, Non-Tender, No Organomegaly, No Distention, No Abnormal Bruit, No Mass (Female) Exam: Deferred Rectal (Female) Exam: Deferred Back Exam: Paraspinal Tenderness, Vertebral Tenderness Extremities: Normal Inspection, Non-Tender, No Pedal Edema, Normal Capillary Refill, Joint Swelling (diffuse) Neurological: Alert, Oriented, CN II-XII Intact, Normal Cognition, Normal Gait, Normal Reflexes, No Motor/Sensory Deficits Psychiatric: Normal Affect, Normal Mood Skin Exam: Warm, Dry, Intact, Normal Color, No Rash Lymphatic: No Adenopathy Course - Vital Signs Last Recorded V/S: Last Vital Signs Temp 36 C 12/21/16 18:05 Pulse 105 H 12/21/16 18:05 Resp 16 12/21/16 18:05 BP 135/82 12/21/16 18:05 Pulse Ox 97 12/21/16 18:05 - Orders/Labs/Meds Meds: Medications Discontinued Medications Generic Name Dose Route Start Last Admin Trade Name Bryce PRN Reason Stop Dose Admin Methylprednisolone Sodium Succinate 125 mg 12/21/16 18:25 Solu-Medrol IM 12/21/16 18:26 ONETIME ONE Departure - Departure Time of Disposition: 18:36 Disposition: Home, Self-Care 01 Condition: Fair Clinical Impression: Back pain with sciatica Rheumatoid arthritis Qualifiers: Rheumatoid arthritis location: unspecified site Rheumatoid factor presence: unspecified presence Qualified Code(s): M06.9 - Rheumatoid arthritis, unspecified - Discharge Information Instructions: Osteoarthritis, Back Pain, Adult, [id number] Care Plan Goals: The patient was advised of the examination results during the visit. The patient was given an injection of SoluMedrol. The patient was discharged with a script for Medrol Dose Pack to take as directed. The patient was encouraged to follow-up with her primary care facility or return to the emergency department.
== END 2016-12-21 18:53 | disposition home or self-care (01) ==
LOC: DL.ED 18:02
DX: M54.40 Lumbago with sciatica, unspecified side (principal); E66.9 Obesity, unspecified; F17.210 Nicotine dependence, cigarettes, uncomplicated; Z79.899 Other long term (current) drug therapy; Z90.49 Acquired absence of other specified parts of digestive tract; Z68.42 Body mass index [BMI] 45.0-49.9, adult
CPT/HCPCS: 96372; 99283; J2930